=== PATIENT | male | born 1945 | race Caucasian/White ===

== ENCOUNTER 2020-08-17 16:56 | Emergency (ER) | payer OTHER ==
[2020-08-17 17:04] VITALS: BMI 28.2
[2020-08-17] MEDS ORDERED: SODIUM CHLORIDE 1,000 ML IV STA (18:46)
[2020-08-17] MEDS ORDERED: morphine CARPU-JECT 4 MG/1 ML DISP.SYRIN IVPUSH ONE (18:46)
[2020-08-17] MEDS ORDERED: ONDANSETRON 4 MG/2 ML VIAL IVPUSH ONE (18:49)
[2020-08-17] MEDS ORDERED: ONDANSETRON 4 MG/2 ML VIAL ONE (19:02)
[2020-08-17] MEDS ORDERED: MORPHINE SULFATE 2 MG/ML VIAL ONE (19:02)
[2020-08-17 19:47] LABS: BASO % 0.6 % (0-2.0); HEMATOCRIT 44.6 % (35.4-49); HEMOGLOBIN 14.8 GM/dL (11.7-16.9); LYMPH % 15.1 % (8-40); MCH 31.8 pg (25.7-33.7); MCHC 33.1 g/dl (32.0-35.9); MEAN CELL VOLUME 95.8 fl (80-96); MEAN PLT VOLUME 7.9 fl (7.5-11.1); MONO % 8.5 % (3.8-10.2); NEUT % 74.8 % (42.8-82.8); PLATELET COUNT 400 K/MM3 (134-434); RBC 4.65 M/mm3 (4.00-5.60); RDW 13.3 % (11.9-15.9); WHITE BLOOD COUNT 12.4 K/mm3 (4.0-10.0)
[2020-08-17 20:10] LABS: POTASSIUM 4.9 mmol/L (3.5-5.1)
[2020-08-17 20:12] LABS: ALBUMIN 2.9 g/dl (3.4-5.0); BLOOD UREA NITROGEN 16.2 mg/dL (7-18); CALCIUM 8.9 mg/dL (8.5-10.1)
[2020-08-17 20:15] LABS: CREATININE 0.8 mg/dL (0.55-1.3)
[2020-08-17 20:17] LABS: BILIRUBIN,TOTAL 1.2 mg/dL (0.2-1); TOT PROT 7.3 g/dl (6.4-8.2)
[2020-08-17 20:40] LABS: INR 1.18 (0.83-1.09); PROTHROMBIN TIME (PATIENT) 14.4 SEC (9.7-13.0)
[2020-08-17 20:43] LABS: ACTIVATED PTT 22.7 SECONDS (25.2-36.5)
[2020-08-17 21:03] LABS: ERYTHROCYTE SEDIMENTATION RATE 25 mm/hr (0-20)
[2020-08-17 22:30] VITALS: BP 127/86; PULSE 92; TEMP 98.6
== END 2020-08-17 23:12 | disposition home or self-care (01) ==
LOC: JER 16:56
PROC: 3E033NZ Introduction of Analgesics, Hypnotics, Sedatives into Peripheral Vein, Percutaneous Approach (ICD-10-PCS; principal; 2020-08-17)
PROC: 3E033GC Introduction of Other Therapeutic Substance into Peripheral Vein, Percutaneous Approach (ICD-10-PCS; 2020-08-17)
PROC: 3E0337Z Introduction of Electrolytic and Water Balance Substance into Peripheral Vein, Percutaneous Approach (ICD-10-PCS; 2020-08-17)
DX: K52.9 Noninfective gastroenteritis and colitis, unspecified (principal)
CPT/HCPCS: 36415; 74177-TC; 80053; 80074; 83690; 85025; 85610; 85651; 85730; 86140; 99285-25; C9803; Q9967; U0003

== ENCOUNTER 2020-08-26 14:08 | Inpatient (IN) | payer OTHER ==
[2020-08-26] MEDS ORDERED: ACETAMINOPHEN 325 MG TABLET (FP) PO ONE (14:59)
[2020-08-26] MEDS ORDERED: SODIUM CHLORIDE 0.9% 500 ML INFUS.BAG IV ONE (14:59)
[2020-08-26] MEDS ORDERED: ACETAMINOPHEN 1000 MG/100 ML VIAL (NON FORMULARY) IVPB ONE (15:20)
[2020-08-26] MEDS ORDERED: ACETAMINOPHEN INJECTION 100 ML IVPB ONE (15:46)
[2020-08-26 15:58] LABS: BASO % 0.8 % (0-2.0); EOS % 1.8 % (0-4.5); HEMATOCRIT 44.6 % (35.4-49); HEMOGLOBIN 15.3 GM/dL (11.7-16.9); LYMPH % 20.3 % (8-40); MCH 32.3 pg (25.7-33.7); MCHC 34.2 g/dl (32.0-35.9); MEAN CELL VOLUME 94.5 fl (80-96); MEAN PLT VOLUME 8.1 fl (7.5-11.1); MONO % 7.9 % (3.8-10.2); NEUT % 69.2 % (42.8-82.8); RBC 4.73 M/mm3 (4.00-5.60); WHITE BLOOD COUNT 10.7 K/mm3 (4.0-10.0)
[2020-08-26 16:01] LABS: EPI CELLS 9 /uL (0-25.1); HYALINE CASTS 5 /uL (0-3.1); PH,URINE 5.5 (5.0-8.0); URINE APPEARANCE CLEAR; URINE BACTERIA 163 /uL (0-1359); URINE BILIRUBIN NEGATIVE (NEGATIVE); URINE COLOR YELLOW; URINE GLUCOSE (UA) NEGATIVE (NEGATIVE); URINE KETONE NEGATIVE (NEGATIVE); URINE LEUK ESTERASE NEGATIVE (NEGATIVE); URINE NITRITE NEGATIVE (NEGATIVE); URINE PROTEIN 2+ (NEGATIVE); URINE UROBILINOGEN 0.2 mg/dL (0.2-1.0); URINE WBC 19 /uL (0-25.8)
[2020-08-26 16:22] LABS: POTASSIUM 4.9 mmol/L (3.5-5.1)
[2020-08-26 16:24] LABS: ALBUMIN 2.9 g/dl (3.4-5.0); CALCIUM 8.9 mg/dL (8.5-10.1)
[2020-08-26 16:25] LABS: BLOOD UREA NITROGEN 10.8 mg/dL (7-18)
[2020-08-26 16:28] LABS: CREATININE 0.7 mg/dL (0.55-1.3)
[2020-08-26 16:29] LABS: BILIRUBIN,TOTAL 0.8 mg/dL (0.2-1)
[2020-08-26 16:50] LABS: URINE RBC 68.8 /uL (0-23.9)
[2020-08-26 17:08] LABS: PLATELET COUNT 321 K/MM3 (134-434); PLATELET ESTIMATE ADEQUATE
[2020-08-26] MEDS ORDERED: PIPERACILLIN/TAZOB 4.5 GM 4.5 GM in DEXTROSE 5%-WATER 100 ML IVPB ONE (18:30)
[2020-08-26] MEDS ORDERED: LACTATED RINGERS SOLUTION 1,000 ML IV STA (18:35)
[2020-08-26] MEDS ORDERED: PIPERACILLIN/TAZOB 4.5 GM 4.5 GM/100 ML BAG IVPB ONE (18:38)
[2020-08-26] MEDS ORDERED: TRIMETHOBENZAMIDE HCL 200MG/2ML INJ IM PRN (21:48)
[2020-08-26] MEDS: LACTATED RINGERS SOLUTION 1,000 ML/1,000 ML INFUS.BAG IV SCH (22:40)
[2020-08-27 02:41] LABS: EPI CELLS 7 /uL (0-25.1); HYALINE CASTS 1 /uL (0-3.1); URINE APPEARANCE CLEAR; URINE BACTERIA 209 /uL (0-1359); URINE BILIRUBIN NEGATIVE (NEGATIVE); URINE COLOR YELLOW; URINE GLUCOSE (UA) NEGATIVE (NEGATIVE); URINE KETONE TRACE (NEGATIVE); URINE LEUK ESTERASE NEGATIVE (NEGATIVE); URINE NITRITE NEGATIVE (NEGATIVE); URINE PROTEIN 1+ (NEGATIVE); URINE UROBILINOGEN 0.2 mg/dL (0.2-1.0); URINE WBC 37 /uL (0-25.8)
[2020-08-27 04:49] VITALS: BMI 28.3
[2020-08-27 07:56] LABS: MCHC 35.1 g/dl (32.0-35.9); MEAN CELL VOLUME 94.1 fl (80-96); MEAN PLT VOLUME 7.5 fl (7.5-11.1); PLATELET COUNT 266 K/MM3 (134-434); RBC 3.94 M/mm3 (4.00-5.60); RDW 12.8 % (11.9-15.9)
[2020-08-27 07:57] LABS: INR 1.16 (0.83-1.09)
[2020-08-27 08:07] LABS: POTASSIUM 3.8 mmol/L (3.5-5.1)
[2020-08-27 08:24] LABS: ALBUMIN 2.4 g/dl (3.4-5.0); BLOOD UREA NITROGEN 11.1 mg/dL (7-18); CALCIUM 8.2 mg/dL (8.5-10.1)
[2020-08-27 08:25] LABS: MAGNESIUM 1.9 mg/dL (1.8-2.4)
[2020-08-27 08:27] LABS: CREATININE 0.6 mg/dL (0.55-1.3)
[2020-08-27 08:28] LABS: PHOSPHOROUS 3.3 mg/dL (2.5-4.9)
[2020-08-27 08:29] LABS: BILIRUBIN,TOTAL 0.8 mg/dL (0.2-1); TOT PROT 5.7 g/dl (6.4-8.2)
[2020-08-27] MEDS: LISINOPRIL 20 MG TABLET PO SCH (12:24)
[2020-08-27 13:39] LABS: URINE RBC 60.2 /uL (0-23.9)
[2020-08-27 14:20] LABS: YEAST NONE SEEN (NEGATIVE)
[2020-08-27] MEDS: LACTATED RINGERS SOLUTION 1,000 ML/1,000 ML INFUS.BAG IV SCH (16:30)
[2020-08-27] MEDS ORDERED: DEXTROSE 5%-WATER 100 ML IVPB ONE (17:56)
[2020-08-27] MEDS: CEFTRIAXONE 2 GM in DEXTROSE 5%-WATER 2 GM/100 ML BAG IVPB SCH (18:05)
[2020-08-28] MEDS ORDERED: PT OWN MED DRAWER 7, Y5N ONE (02:02)
[2020-08-28 09:58] LABS: BASO % 0.5 % (0-2.0); EOS % 5.8 % (0-4.5); HEMOGLOBIN 13.7 GM/dL (11.7-16.9); LYMPH % 24.7 % (8-40); MCH 32.6 pg (25.7-33.7); MCHC 34.1 g/dl (32.0-35.9); MEAN CELL VOLUME 95.7 fl (80-96); MEAN PLT VOLUME 7.4 fl (7.5-11.1); MONO % 8.7 % (3.8-10.2); NEUT % 60.3 % (42.8-82.8); PLATELET COUNT 291 K/MM3 (134-434); RBC 4.18 M/mm3 (4.00-5.60); WHITE BLOOD COUNT 6.8 K/mm3 (4.0-10.0)
[2020-08-28] MEDS ORDERED: CEFTRIAXONE 2 GM in DEXTROSE 5%-WATER 2 GM/100 ML BAG IVPB SCH (10:00)
[2020-08-28 10:23] LABS: POTASSIUM 3.7 mmol/L (3.5-5.1)
[2020-08-28 10:25] LABS: CALCIUM 8.7 mg/dL (8.5-10.1)
[2020-08-28 10:26] LABS: ALBUMIN 2.7 g/dl (3.4-5.0)
[2020-08-28 10:29] LABS: CREATININE 0.7 mg/dL (0.55-1.3)
[2020-08-28 10:31] LABS: BILIRUBIN,TOTAL 0.7 mg/dL (0.2-1); TOT PROT 6.5 g/dl (6.4-8.2)
[2020-08-28] MEDS ORDERED: DEXTROSE 5%-WATER 100 ML IVPB ONE (11:02)
[2020-08-28] MEDS: CEFTRIAXONE 2 GM in DEXTROSE 5%-WATER 2 GM/100 ML BAG IVPB SCH (11:05)
[2020-08-28] MEDS: LISINOPRIL 20 MG TABLET PO SCH (11:06)
[2020-08-28] MEDS: LACTATED RINGERS SOLUTION 1,000 ML/1,000 ML INFUS.BAG IV SCH (23:05)
[2020-08-29 09:46] LABS: HEMATOCRIT 37.4 % (35.4-49); HEMOGLOBIN 12.8 GM/dL (11.7-16.9); MCH 32.5 pg (25.7-33.7); MCHC 34.1 g/dl (32.0-35.9); MEAN CELL VOLUME 95.4 fl (80-96); MEAN PLT VOLUME 7.6 fl (7.5-11.1); PLATELET COUNT 260 K/MM3 (134-434); RBC 3.93 M/mm3 (4.00-5.60); RDW 13.2 % (11.9-15.9); WHITE BLOOD COUNT 5.8 K/mm3 (4.0-10.0)
[2020-08-29 09:58] LABS: POTASSIUM 3.9 mmol/L (3.5-5.1)
[2020-08-29 09:59] LABS: CALCIUM 8.3 mg/dL (8.5-10.1)
[2020-08-29 10:00] LABS: BLOOD UREA NITROGEN 11.3 mg/dL (7-18)
[2020-08-29 10:03] LABS: CREATININE 0.6 mg/dL (0.55-1.3)
[2020-08-29] MEDS ORDERED: DEXTROSE 5%-WATER 100 ML IVPB ONE (10:58)
[2020-08-29] MEDS: CEFTRIAXONE 2 GM in DEXTROSE 5%-WATER 2 GM/100 ML BAG IVPB SCH (11:00)
[2020-08-29] MEDS: LISINOPRIL 20 MG TABLET PO SCH (11:01)
[2020-08-29] MEDS: DEXTROSE 5%-NORMAL SALINE 1,000 ML IV SCH (11:39)
[2020-08-30 08:52] LABS: BASO % 0.6 % (0-2.0); EOS % 5.9 % (0-4.5); HEMATOCRIT 37.9 % (35.4-49); HEMOGLOBIN 13.2 GM/dL (11.7-16.9); LYMPH % 22.7 % (8-40); MCH 32.5 pg (25.7-33.7); MCHC 34.9 g/dl (32.0-35.9); MEAN CELL VOLUME 93.3 fl (80-96); MEAN PLT VOLUME 7.1 fl (7.5-11.1); MONO % 10.1 % (3.8-10.2); NEUT % 60.7 % (42.8-82.8); PLATELET COUNT 294 K/MM3 (134-434); RBC 4.06 M/mm3 (4.00-5.60); RDW 12.8 % (11.9-15.9); WHITE BLOOD COUNT 5.9 K/mm3 (4.0-10.0)
[2020-08-30 09:10] LABS: POTASSIUM 3.8 mmol/L (3.5-5.1)
[2020-08-30 09:27] LABS: ALBUMIN 2.6 g/dl (3.4-5.0); CALCIUM 8.4 mg/dL (8.5-10.1); MAGNESIUM 1.8 mg/dL (1.8-2.4)
[2020-08-30 09:28] LABS: BLOOD UREA NITROGEN 5.7 mg/dL (7-18)
[2020-08-30 09:31] LABS: CREATININE 0.6 mg/dL (0.55-1.3); PHOSPHOROUS 2.5 mg/dL (2.5-4.9)
[2020-08-30 09:32] LABS: BILIRUBIN,TOTAL 0.4 mg/dL (0.2-1)
[2020-08-30] MEDS ORDERED: DEXTROSE 5%-WATER 100 ML IVPB ONE (10:24)
[2020-08-30] MEDS: LACTATED RINGERS SOLUTION 1,000 ML/1,000 ML INFUS.BAG IV SCH (10:39)
[2020-08-30] MEDS: LISINOPRIL 20 MG TABLET PO SCH (10:40)
[2020-08-30] MEDS: DEXTROSE 5%-NORMAL SALINE 1,000 ML IV SCH (10:40)
[2020-08-30] MEDS: CEFTRIAXONE 2 GM in DEXTROSE 5%-WATER 2 GM/100 ML BAG IVPB SCH (10:40)
[2020-08-30] MEDS ORDERED: NAPH,MB-DB/K PH,MBDB POWDER PACKET PO ONE (14:25)
[2020-08-30] MEDS ORDERED: MAGNESIUM OXIDE 400 MG TABLET (FP) PO ONE (14:26)
[2020-08-30] MEDS ORDERED: PT OWN MED DRAWER 7, Y5N ONE (20:39)
[2020-08-31 08:36] LABS: BASO % 0.4 % (0-2.0); EOS % 4.5 % (0-4.5); HEMOGLOBIN 12.9 GM/dL (11.7-16.9); LYMPH % 22.3 % (8-40); MCH 32.4 pg (25.7-33.7); MCHC 34.8 g/dl (32.0-35.9); MEAN CELL VOLUME 92.9 fl (80-96); MEAN PLT VOLUME 7.2 fl (7.5-11.1); MONO % 9.8 % (3.8-10.2); PLATELET COUNT 282 K/MM3 (134-434); RBC 3.98 M/mm3 (4.00-5.60); RDW 13.1 % (11.9-15.9); WHITE BLOOD COUNT 6.1 K/mm3 (4.0-10.0)
[2020-08-31 08:52] LABS: POTASSIUM 3.5 mmol/L (3.5-5.1)
[2020-08-31 08:56] LABS: CALCIUM 8.4 mg/dL (8.5-10.1)
[2020-08-31 08:57] LABS: ALBUMIN 2.5 g/dl (3.4-5.0); MAGNESIUM 1.6 mg/dL (1.8-2.4)
[2020-08-31 08:59] LABS: PHOSPHOROUS 2.7 mg/dL (2.5-4.9)
[2020-08-31 09:00] LABS: CREATININE 0.6 mg/dL (0.55-1.3)
[2020-08-31 09:01] LABS: BILIRUBIN,TOTAL 0.4 mg/dL (0.2-1); TOT PROT 5.7 g/dl (6.4-8.2)
[2020-08-31 09:08] LABS: BLOOD UREA NITROGEN 2.7 mg/dL (7-18)
[2020-08-31] MEDS ORDERED: DEXTROSE 5%-WATER 100 ML IVPB ONE (10:56)
[2020-08-31] MEDS: LISINOPRIL 20 MG TABLET PO SCH (11:14)
[2020-08-31] MEDS: CEFTRIAXONE 2 GM in DEXTROSE 5%-WATER 2 GM/100 ML BAG IVPB SCH (11:14)
[2020-08-31] MEDS ORDERED: PT OWN MED DRAWER 7, Y5N ONE (11:15)
[2020-08-31] MEDS ORDERED: MAGNESIUM OXIDE 400 MG TABLET (FP) PO ONE (14:17)
[2020-08-31] MEDS ORDERED: NAPH,MB-DB/K PH,MBDB POWDER PACKET PO ONE (15:55)
[2020-08-31] MEDS: HEPARIN NA (PORCINE) 5,000 UNITS/ML 1ML VIAL SQ SCH (21:31)
[2020-09-01 00:19] LABS: EPI CELLS 3 /uL (0-25.1); HYALINE CASTS 2 /uL (0-3.1); URINE APPEARANCE CLEAR; URINE BACTERIA 25 /uL (0-1359); URINE BILIRUBIN NEGATIVE (NEGATIVE); URINE COLOR YELLOW; URINE GLUCOSE (UA) NEGATIVE (NEGATIVE); URINE KETONE NEGATIVE (NEGATIVE); URINE LEUK ESTERASE NEGATIVE (NEGATIVE); URINE NITRITE NEGATIVE (NEGATIVE); URINE PROTEIN TRACE (NEGATIVE); URINE RBC 275 /uL (0-23.9); URINE UROBILINOGEN 0.2 mg/dL (0.2-1.0); URINE WBC 6 /uL (0-25.8)
[2020-09-01] MEDS: HEPARIN NA (PORCINE) 5,000 UNITS/ML 1ML VIAL SQ SCH ×2 (06:11→15:26)
[2020-09-01 09:10] LABS: BASO % 0.4 % (0-2.0); EOS % 3.5 % (0-4.5); HEMATOCRIT 37.8 % (35.4-49); LYMPH % 27.2 % (8-40); MCH 32.2 pg (25.7-33.7); MCHC 34.4 g/dl (32.0-35.9); MEAN CELL VOLUME 93.6 fl (80-96); MEAN PLT VOLUME 7.5 fl (7.5-11.1); MONO % 8.5 % (3.8-10.2); NEUT % 60.4 % (42.8-82.8); PLATELET COUNT 305 K/MM3 (134-434); RBC 4.03 M/mm3 (4.00-5.60); RDW 12.9 % (11.9-15.9)
[2020-09-01 10:15] LABS: ALBUMIN 2.6 g/dl (3.4-5.0); BLOOD UREA NITROGEN 6.2 mg/dL (7-18); CALCIUM 8.4 mg/dL (8.5-10.1); MAGNESIUM 1.6 mg/dL (1.8-2.4)
[2020-09-01 10:18] LABS: CREATININE 0.6 mg/dL (0.55-1.3)
[2020-09-01 10:19] LABS: PHOSPHOROUS 2.8 mg/dL (2.5-4.9)
[2020-09-01 10:20] LABS: BILIRUBIN,TOTAL 0.5 mg/dL (0.2-1); TOT PROT 5.8 g/dl (6.4-8.2)
[2020-09-01 10:21] LABS: POTASSIUM 3.8 mmol/L (3.5-5.1)
[2020-09-01] MEDS: LISINOPRIL 20 MG TABLET PO SCH (11:06)
[2020-09-01 15:14] VITALS: BP 112/66; PULSE 83; TEMP 98.3
[2020-09-03 06:10] LABS: ANTI-DNAse B 86 U/mL (0-120)
[2020-09-03 16:08] LABS: ATYPICAL pANCA <1:20 titer (Neg:<1:20); C-ANCA <1:20 titer (Neg:<1:20)
== END 2020-09-01 19:07 | disposition home or self-care (01) | DRG 392 ==
LOC: JER 14:08 → JERBED 18:34 → J8W 08-27 02:46
PROVIDERS: ADMIT Internal Medicine; ATTEND Internal Medicine
PROC: 0HBMXZX Excision of Right Foot Skin, External Approach, Diagnostic (ICD-10-PCS; principal; 2020-09-01)
DX: A08.4 Viral intestinal infection, unspecified (principal); M31.0 Hypersensitivity angiitis; R18.8 Other ascites; R31.9 Hematuria, unspecified; I25.10 Atherosclerotic heart disease of native coronary artery without angina pectoris; I10 Essential (primary) hypertension; R80.9 Proteinuria, unspecified; M11.232 Other chondrocalcinosis, left wrist; N40.0 Benign prostatic hyperplasia without lower urinary tract symptoms; Z95.5 Presence of coronary angioplasty implant and graft
CPT/HCPCS: 36415; 74174-TC; 74177-TC; 80048; 80053; 81003; 82272; 83520; 83605; 83690; 83735; 84100; 84153; 84155; 84165; 85025; 85027; 85610; 85651; 85730; 86038; 86140; 86160; 86162; 86215; 86225; 86256; 87086; 88305-TC; 93005; 93010; 93971-TC; 99285-25; C9803; J0131; J1644; Q9967; U0003

== ENCOUNTER 2020-09-08 11:17 | Inpatient (IN) | payer OTHER ==
[2020-09-08 11:21] VITALS: BMI 25.8
[2020-09-08] MEDS ORDERED: SODIUM CHLORIDE 500 ML IV STA (12:02)
[2020-09-08] MEDS ORDERED: ACETAMINOPHEN 1000 MG/100 ML VIAL (NON FORMULARY) IVPB ONE (12:02)
[2020-09-08] MEDS ORDERED: ACETAMINOPHEN INJECTION 100 ML IVPB ONE (12:06)
[2020-09-08 12:47] LABS: BASO % 0.3 % (0-2.0); EOS % 2.3 % (0-4.5); HEMATOCRIT 45.3 % (35.4-49); HEMOGLOBIN 15.7 GM/dL (11.7-16.9); LYMPH % 18.4 % (8-40); MCH 32.7 pg (25.7-33.7); MCHC 34.6 g/dl (32.0-35.9); MEAN CELL VOLUME 94.5 fl (80-96); MEAN PLT VOLUME 7.5 fl (7.5-11.1); MONO % 9.8 % (3.8-10.2); NEUT % 69.2 % (42.8-82.8); PLATELET COUNT 348 K/MM3 (134-434); RBC 4.79 M/mm3 (4.00-5.60); WHITE BLOOD COUNT 8.5 K/mm3 (4.0-10.0)
[2020-09-08 12:49] LABS: CHLORIDE 100 mmol/L (98-107); POTASSIUM 5.4 mmol/L (3.5-5.1); SODIUM 135 mmol/L (136-145)
[2020-09-08 12:51] LABS: ALBUMIN 2.9 g/dl (3.4-5.0); ANION GAP 5 MMOL/L (8-16); BLOOD UREA NITROGEN 11.8 mg/dL (7-18); CO2 31 mmol/L (21-32); GLUCOSE,RANDOM 99 mg/dL (74-106); LIPASE 85 U/L (73-393)
[2020-09-08 12:54] LABS: CREATININE 0.8 mg/dL (0.55-1.3); SGOT/AST 42 U/L (15-37); SGPT/ALT 30 U/L (13-61)
[2020-09-08 12:56] LABS: TOT PROT 7.3 g/dl (6.4-8.2)
[2020-09-08 12:57] LABS: ALK PHOS 75 U/L (45-117)
[2020-09-08 13:00] LABS: CALCIUM 8.7 mg/dL (8.5-10.1)
[2020-09-08] MEDS ORDERED: morphine CARPU-JECT 2 MG/1 ML DISP.SYRIN IVPUSH ONE (17:39)
[2020-09-08] MEDS ORDERED: LACTATED RINGERS SOLUTION 1000 ML INFUS.BAG IV ONE (17:40)
[2020-09-08] MEDS ORDERED: MORPHINE SULFATE 2 MG/ML VIAL ONE (18:15)
[2020-09-08] MEDS ORDERED: HEPARIN NA (PORCINE) 5,000 UNITS/ML 1ML VIAL ONE (22:03)
[2020-09-08] MEDS: HEPARIN NA (PORCINE) 5,000 UNITS/ML 1ML VIAL SQ SCH (22:11)
[2020-09-08 22:35] LABS: HIV INTERPRETATION NEGATIVE (NEGATIVE)
[2020-09-08 22:47] LABS: URINE APPEARANCE CLEAR; URINE BILIRUBIN NEGATIVE (NEGATIVE); URINE COLOR YELLOW; URINE GLUCOSE (UA) NEGATIVE (NEGATIVE); URINE KETONE 15 mg/dl (NEGATIVE); URINE NITRITE NEGATIVE (NEGATIVE); URINE PROTEIN 30 (NEGATIVE); URINE UROBILINOGEN 0.2 mg/dL (0.2-1.0)
[2020-09-08 22:48] LABS: EPI CELLS 7.5 /uL (0-25.1); HYALINE CASTS 1.66 /uL (0-3.1); URINE BACTERIA 61.1 /uL (0-1359); URINE LEUK ESTERASE NEGATIVE (NEGATIVE); URINE RBC 611.1 /uL (0-23.9); URINE WBC 40.2 /uL (0-25.8)
[2020-09-09] MEDS ORDERED: MORPHINE SULFATE 2 MG/ML VIAL IVPUSH ONE (05:06)
[2020-09-09] MEDS: HEPARIN NA (PORCINE) 5,000 UNITS/ML 1ML VIAL SQ SCH ×3 (05:50→21:23)
[2020-09-09 08:57] LABS: INR 1.19 (0.83-1.09); PROTHROMBIN TIME (PATIENT) 14.6 SEC (9.7-13.0)
[2020-09-09 08:59] LABS: ACTIVATED PTT 26.9 SECONDS (25.2-36.5)
[2020-09-09 09:01] LABS: HEMATOCRIT 37.3 % (35.4-49); HEMOGLOBIN 12.9 GM/dL (11.7-16.9); MCH 32.4 pg (25.7-33.7); MCHC 34.6 g/dl (32.0-35.9); MEAN CELL VOLUME 93.7 fl (80-96); MEAN PLT VOLUME 7.5 fl (7.5-11.1); PLATELET COUNT 271 K/MM3 (134-434); RBC 3.98 M/mm3 (4.00-5.60); RDW 13.2 % (11.9-15.9); WHITE BLOOD COUNT 6.1 K/mm3 (4.0-10.0)
[2020-09-09 09:13] LABS: POTASSIUM 3.7 mmol/L (3.5-5.1)
[2020-09-09] MEDS: ACETAMINOPHEN 325 MG TABLET (FP) PO PRN (09:14)
[2020-09-09 09:22] LABS: BILIRUBIN,TOTAL 0.8 mg/dL (0.2-1); TOT PROT 5.8 g/dl (6.4-8.2)
[2020-09-09 09:23] LABS: ALBUMIN 2.5 g/dl (3.4-5.0); CALCIUM 8.6 mg/dL (8.5-10.1); MAGNESIUM 1.8 mg/dL (1.8-2.4)
[2020-09-09 09:25] LABS: CREATININE 0.6 mg/dL (0.55-1.3); PHOSPHOROUS 3.4 mg/dL (2.5-4.9)
[2020-09-09] MEDS ORDERED: POTASSIUM CHLORIDE 20 MEQ in LACTATED RINGERS SOLUTION 1,000 ML IV ONE (11:30)
[2020-09-09] MEDS ORDERED: PEG 3350/NA SULF BICARB CL/KCL 4000 ML SOLN.RECON PO ONE ×2 (16:00→17:00)
[2020-09-09] MEDS ORDERED: BISACODYL 5 MG TABLET.DR (FP) PO ONE (16:00)
[2020-09-09] MEDS: NYSTATIN 500,000 UNITS/5 ML SUSPENSION PO SCH (17:05)
[2020-09-10] MEDS: NYSTATIN 500,000 UNITS/5 ML SUSPENSION PO SCH ×5 (06:17→23:31)
[2020-09-10] MEDS ORDERED: SIMETHICONE 40 MG/0.6 ML BOTTLE ONE (11:33)
[2020-09-10 15:46] LABS: EPI CELLS 31 /uL (0-25.1); HYALINE CASTS 15 /uL (0-3.1); URINE APPEARANCE CLEAR; URINE BACTERIA 21 /uL (0-1359); URINE BILIRUBIN NEGATIVE (NEGATIVE); URINE COLOR YELLOW; URINE GLUCOSE (UA) NEGATIVE (NEGATIVE); URINE KETONE 2+ (NEGATIVE); URINE LEUK ESTERASE NEGATIVE (NEGATIVE); URINE NITRITE NEGATIVE (NEGATIVE); URINE PROTEIN 2+ (NEGATIVE); URINE RBC 1210 /uL (0-23.9); URINE UROBILINOGEN 0.2 mg/dL (0.2-1.0); URINE WBC 40 /uL (0-25.8)
[2020-09-10 16:04] LABS: BASO % 0.3 % (0-2.0); HEMOGLOBIN 13.1 GM/dL (11.7-16.9); MEAN PLT VOLUME 7.7 fl (7.5-11.1); MONO % 9.7 % (3.8-10.2); NEUT % 64.3 % (42.8-82.8); RDW 13.2 % (11.9-15.9)
[2020-09-10 16:22] LABS: EOS % 2.4 % (0-4.5); HEMATOCRIT 39.4 % (35.4-49); LYMPH % 23.3 % (8-40); MCH 31.3 pg (25.7-33.7); MCHC 33.2 g/dl (32.0-35.9); MEAN CELL VOLUME 94.4 fl (80-96); PLATELET COUNT 274 K/MM3 (134-434); POTASSIUM 3.7 mmol/L (3.5-5.1); RBC 4.17 M/mm3 (4.00-5.60); WHITE BLOOD COUNT 6.4 K/mm3 (4.0-10.0)
[2020-09-10 16:24] LABS: CALCIUM 9.1 mg/dL (8.5-10.1)
[2020-09-10 16:25] LABS: ALBUMIN 2.8 g/dl (3.4-5.0); BLOOD UREA NITROGEN 6.8 mg/dL (7-18); MAGNESIUM 1.8 mg/dL (1.8-2.4)
[2020-09-10 16:28] LABS: CREATININE 0.7 mg/dL (0.55-1.3); PHOSPHOROUS 2.8 mg/dL (2.5-4.9)
[2020-09-10 16:29] LABS: BILIRUBIN,TOTAL 0.6 mg/dL (0.2-1); TOT PROT 6.5 g/dl (6.4-8.2)
[2020-09-10] MEDS ORDERED: PT OWN MED DRAWER 7, Y5N ONE (17:43)
[2020-09-10 21:11] LABS: HEP B CORE AB, TOT Positive (Negative)
[2020-09-10] MEDS: HEPARIN NA (PORCINE) 5,000 UNITS/ML 1ML VIAL SQ SCH (21:27)
[2020-09-10] MEDS: ACETAMINOPHEN 325 MG TABLET (FP) PO PRN (23:28)
[2020-09-11] MEDS: HEPARIN NA (PORCINE) 5,000 UNITS/ML 1ML VIAL SQ SCH ×3 (06:18→21:58)
[2020-09-11] MEDS: NYSTATIN 500,000 UNITS/5 ML SUSPENSION PO SCH ×3 (06:18→17:36)
[2020-09-11] MEDS ORDERED: predniSONE 20 MG TABLET (UD) PO SCH (12:00)
[2020-09-11] MEDS: ACETAMINOPHEN 325 MG TABLET (FP) PO PRN (20:06)
[2020-09-12] MEDS: NYSTATIN 500,000 UNITS/5 ML SUSPENSION PO SCH ×4 (01:32→17:51)
[2020-09-12] MEDS: HEPARIN NA (PORCINE) 5,000 UNITS/ML 1ML VIAL SQ SCH ×3 (05:30→21:32)
[2020-09-12] MEDS: methylPREDNISolone NA SUCC 40 MG/1 ML VIAL IVPUSH SCH (09:39)
[2020-09-13] MEDS: NYSTATIN 500,000 UNITS/5 ML SUSPENSION PO SCH ×4 (01:01→17:53)
[2020-09-13] MEDS: HEPARIN NA (PORCINE) 5,000 UNITS/ML 1ML VIAL SQ SCH ×3 (06:12→21:22)
[2020-09-13] MEDS: methylPREDNISolone NA SUCC 40 MG/1 ML VIAL IVPUSH SCH (09:13)
[2020-09-13 09:51] LABS: BASO % 0.3 % (0-2.0); EOS % 0.2 % (0-4.5); HEMATOCRIT 35.4 % (35.4-49); HEMOGLOBIN 12.1 GM/dL (11.7-16.9); LYMPH % 21.8 % (8-40); MCH 32.2 pg (25.7-33.7); MCHC 34.3 g/dl (32.0-35.9); MEAN CELL VOLUME 94.1 fl (80-96); MEAN PLT VOLUME 8.2 fl (7.5-11.1); MONO % 9.7 % (3.8-10.2); PLATELET COUNT 241 K/MM3 (134-434); RBC 3.76 M/mm3 (4.00-5.60); RDW 12.8 % (11.9-15.9); WHITE BLOOD COUNT 7.7 K/mm3 (4.0-10.0)
[2020-09-13 10:26] LABS: MAGNESIUM 2.1 mg/dL (1.8-2.4)
[2020-09-13 11:44] LABS: ERYTHROCYTE SEDIMENTATION RATE 72 mm/hr (0-20)
[2020-09-13] MEDS ORDERED: EPHEDRINE SULFATE/0.9% NACL/PF 50 MG/10 ML SYRINGE NR ONE (13:09)
[2020-09-13] MEDS ORDERED: SUCCINYLCHOLINE CHLORIDE 200 MG/10 ML SYRINGE ONE (13:09)
[2020-09-13] MEDS ORDERED: PROPOFOL 20 ML ONE ×2 (13:10)
[2020-09-13] MEDS ORDERED: KETAMINE HCL 200 MG/20 ML VIAL ONE (13:11)
[2020-09-13] MEDS ORDERED: LIDOCAINE HCL/PF 2% SDV 5ML VIAL ONE (13:13)
[2020-09-13] MEDS ORDERED: LIDOCAINE HCL 2% JELLY (5 ML/TUBE) ONE (13:13)
[2020-09-13] MEDS ORDERED: LIDOCAINE HCL 2% JELLY 10 ML CARTRIDGE ONE (13:18)
[2020-09-13] MEDS ORDERED: ceFAZolin SODIUM 1 GM VIAL ONE (13:35)
[2020-09-13] MEDS ORDERED: ACETAMINOPHEN 325 MG TABLET (FP) PO PRN (14:02)
[2020-09-14] MEDS: NYSTATIN 500,000 UNITS/5 ML SUSPENSION PO SCH ×4 (01:13→17:42)
[2020-09-14] MEDS: HEPARIN NA (PORCINE) 5,000 UNITS/ML 1ML VIAL SQ SCH (05:40)
[2020-09-14] MEDS: methylPREDNISolone NA SUCC 40 MG/1 ML VIAL IVPUSH SCH (08:49)
[2020-09-14 08:51] LABS: BASO % 0.5 % (0-2.0); EOS % 0.3 % (0-4.5); HEMATOCRIT 37.9 % (35.4-49); HEMOGLOBIN 12.7 GM/dL (11.7-16.9); LYMPH % 35.8 % (8-40); MCH 31.6 pg (25.7-33.7); MCHC 33.6 g/dl (32.0-35.9); MEAN CELL VOLUME 94.2 fl (80-96); MEAN PLT VOLUME 7.6 fl (7.5-11.1); MONO % 8.6 % (3.8-10.2); NEUT % 54.8 % (42.8-82.8); PLATELET COUNT 276 K/MM3 (134-434); RBC 4.03 M/mm3 (4.00-5.60); RDW 13.1 % (11.9-15.9); WHITE BLOOD COUNT 7.1 K/mm3 (4.0-10.0)
[2020-09-14 08:57] LABS: POTASSIUM 3.7 mmol/L (3.5-5.1)
[2020-09-14 09:03] LABS: ALBUMIN 2.6 g/dl (3.4-5.0)
[2020-09-14 09:04] LABS: BLOOD UREA NITROGEN 18.2 mg/dL (7-18); CALCIUM 8.8 mg/dL (8.5-10.1); MAGNESIUM 1.9 mg/dL (1.8-2.4)
[2020-09-14 09:06] LABS: CREATININE 0.6 mg/dL (0.55-1.3); PHOSPHOROUS 3.3 mg/dL (2.5-4.9)
[2020-09-14 09:07] LABS: BILIRUBIN,TOTAL 0.9 mg/dL (0.2-1); TOT PROT 6.4 g/dl (6.4-8.2)
[2020-09-15] MEDS: NYSTATIN 500,000 UNITS/5 ML SUSPENSION PO SCH ×2 (00:50→05:42)
[2020-09-15] MEDS: methylPREDNISolone NA SUCC 40 MG/1 ML VIAL IVPUSH SCH (08:23)
[2020-09-15 09:17] LABS: BASO % 0.4 % (0-2.0); EOS % 0.5 % (0-4.5); HEMATOCRIT 37.8 % (35.4-49); HEMOGLOBIN 12.7 GM/dL (11.7-16.9); LYMPH % 34.2 % (8-40); MCH 31.9 pg (25.7-33.7); MCHC 33.7 g/dl (32.0-35.9); MEAN CELL VOLUME 94.8 fl (80-96); MEAN PLT VOLUME 7.8 fl (7.5-11.1); MONO % 9.8 % (3.8-10.2); NEUT % 55.1 % (42.8-82.8); PLATELET COUNT 265 K/MM3 (134-434); RBC 3.99 M/mm3 (4.00-5.60); RDW 13.1 % (11.9-15.9); WHITE BLOOD COUNT 7.4 K/mm3 (4.0-10.0)
[2020-09-15 09:21] LABS: INR 0.99 (0.83-1.09); PROTHROMBIN TIME (PATIENT) 12.2 SEC (9.7-13.0)
[2020-09-15 09:34] LABS: POTASSIUM 3.4 mmol/L (3.5-5.1)
[2020-09-15 10:12] LABS: ALBUMIN 2.8 g/dl (3.4-5.0)
[2020-09-15 10:13] LABS: BLOOD UREA NITROGEN 15.5 mg/dL (7-18); MAGNESIUM 1.9 mg/dL (1.8-2.4)
[2020-09-15 10:15] LABS: BILIRUBIN,DIRECT 0.2 mg/dL (0.0-0.2); CREATININE 0.6 mg/dL (0.55-1.3); PHOSPHOROUS 3.1 mg/dL (2.5-4.9)
[2020-09-15 10:16] LABS: BILIRUBIN,TOTAL 0.9 mg/dL (0.2-1); TOT PROT 6.5 g/dl (6.4-8.2)
[2020-09-15] MEDS ORDERED: MIDAZOLAM HCL 2 MG/2 ML SINGLE DOSE VIAL IVPUSH ONE ×2 (11:50→12:00)
[2020-09-16 08:27] LABS: BASO % 0.3 % (0-2.0); HEMATOCRIT 37.9 % (35.4-49); HEMOGLOBIN 12.7 GM/dL (11.7-16.9); LYMPH % 35.8 % (8-40); MCH 31.6 pg (25.7-33.7); MCHC 33.4 g/dl (32.0-35.9); MEAN CELL VOLUME 94.5 fl (80-96); MEAN PLT VOLUME 7.5 fl (7.5-11.1); MONO % 8.5 % (3.8-10.2); NEUT % 54.4 % (42.8-82.8); PLATELET COUNT 274 K/MM3 (134-434); RBC 4.01 M/mm3 (4.00-5.60); WHITE BLOOD COUNT 7.7 K/mm3 (4.0-10.0)
[2020-09-16 08:47] LABS: POTASSIUM 3.6 mmol/L (3.5-5.1)
[2020-09-16 08:50] LABS: CALCIUM 8.7 mg/dL (8.5-10.1)
[2020-09-16 08:51] LABS: ALBUMIN 2.7 g/dl (3.4-5.0); BLOOD UREA NITROGEN 16.7 mg/dL (7-18); MAGNESIUM 1.9 mg/dL (1.8-2.4)
[2020-09-16 08:53] LABS: BILIRUBIN,DIRECT 0.1 mg/dL (0.0-0.2)
[2020-09-16 08:54] LABS: CREATININE 0.6 mg/dL (0.55-1.3); PHOSPHOROUS 3.2 mg/dL (2.5-4.9)
[2020-09-16 08:55] LABS: BILIRUBIN,TOTAL 0.4 mg/dL (0.2-1)
[2020-09-16] MEDS: methylPREDNISolone NA SUCC 40 MG/1 ML VIAL IVPUSH SCH (09:37)
[2020-09-16] MEDS: LISINOPRIL 5 MG TABLET PO SCH (09:39)
[2020-09-16 16:26] LABS: EPI CELLS 14 /uL (0-25.1); HYALINE CASTS 7 /uL (0-3.1); PH,URINE 6.5 (5.0-8.0); URINE APPEARANCE CLEAR; URINE BACTERIA 26 /uL (0-1359); URINE BILIRUBIN NEGATIVE (NEGATIVE); URINE COLOR YELLOW; URINE GLUCOSE (UA) NEGATIVE (NEGATIVE); URINE KETONE NEGATIVE (NEGATIVE); URINE LEUK ESTERASE NEGATIVE (NEGATIVE); URINE NITRITE NEGATIVE (NEGATIVE); URINE PROTEIN 2+ (NEGATIVE); URINE UROBILINOGEN 0.2 mg/dL (0.2-1.0); URINE WBC 14 /uL (0-25.8)
[2020-09-16 17:39] LABS: URINE RBC 150.4 /uL (0-23.9); YEAST FEW (NEGATIVE)
[2020-09-17] MEDS ORDERED: PT OWN MED DRAWER 7, Y5N ONE (09:28)
[2020-09-17] MEDS: LISINOPRIL 5 MG TABLET PO SCH (09:33)
[2020-09-17] MEDS: methylPREDNISolone NA SUCC 40 MG/1 ML VIAL IVPUSH SCH (09:33)
[2020-09-17] MEDS ORDERED: ENTECAVIR 0.5 MG TABLET PO SCH (10:00)
[2020-09-17 10:10] LABS: POTASSIUM 3.9 mmol/L (3.5-5.1)
[2020-09-17 10:11] LABS: ALBUMIN 3.2 g/dl (3.4-5.0)
[2020-09-17 10:15] LABS: BLOOD UREA NITROGEN 16.3 mg/dL (7-18); CALCIUM 9.4 mg/dL (8.5-10.1)
[2020-09-17 10:18] LABS: CREATININE 0.7 mg/dL (0.55-1.3)
[2020-09-17 10:19] LABS: BILIRUBIN,TOTAL 0.5 mg/dL (0.2-1); TOT PROT 7.1 g/dl (6.4-8.2)
[2020-09-17 14:36] VITALS: BP 128/71; PULSE 83; TEMP 98
== END 2020-09-17 18:15 | disposition home or self-care (01) | DRG 813 ==
LOC: JER 11:17 → JERBED 17:43 → J6S 23:35
PROVIDERS: ADMIT Student in an Organized Health Care Education/Training Program; ATTEND Student in an Organized Health Care Education/Training Program
PROC: 0DBC8ZX Excision of Ileocecal Valve, Via Natural or Artificial Opening Endoscopic, Diagnostic (ICD-10-PCS; 2020-09-10)
PROC: 0DBL8ZX Excision of Transverse Colon, Via Natural or Artificial Opening Endoscopic, Diagnostic (ICD-10-PCS; 2020-09-10)
PROC: 0DBN8ZX Excision of Sigmoid Colon, Via Natural or Artificial Opening Endoscopic, Diagnostic (ICD-10-PCS; principal; 2020-09-10 11:15)
PROC: 0TJB8ZZ Inspection of Bladder, Via Natural or Artificial Opening Endoscopic (ICD-10-PCS; 2020-09-13)
PROC: 0TB03ZX Excision of Right Kidney, Percutaneous Approach, Diagnostic (ICD-10-PCS; 2020-09-15)
DX: D69.0 Allergic purpura (principal); K63.3 Ulcer of intestine; M35.9 Systemic involvement of connective tissue, unspecified; I25.10 Atherosclerotic heart disease of native coronary artery without angina pectoris; I10 Essential (primary) hypertension; K52.9 Noninfective gastroenteritis and colitis, unspecified; E87.5 Hyperkalemia; R31.29 Other microscopic hematuria; R91.1 Solitary pulmonary nodule; N28.1 Cyst of kidney, acquired; K63.5 Polyp of colon; K57.30 Diverticulosis of large intestine without perforation or abscess without bleeding; K64.8 Other hemorrhoids; B35.1 Tinea unguium; N40.0 Benign prostatic hyperplasia without lower urinary tract symptoms; R74.01 Elevation of levels of liver transaminase levels
CPT/HCPCS: 36415; 50200; 71045-TC-FY; 74177-TC; 76775-TC; 80048; 80053; 80074; 80076; 81003; 82550; 83516; 83690; 83735; 84100; 84153; 84155; 84165; 84443; 84484; 85025; 85027; 85610; 85651; 85730; 86140; 86480; 86671; 86704; 86706; 86707; 86708; 86709; 86803; 87340; 87389; 87516; 88300-TC; 88305-TC; 88329; 93005; 93010; 93306-TC; 94760; 99285-25; C9803; J0131; J1644; Q9967; U0003